=== PATIENT | male | born 2000 | race Two or more races ===

== ENCOUNTER 2025-08-17 11:55 | Emergency (ER) | payer MEDICAID, OTHER ==
[~2025-08-17] VITALS: Ht 172.7 cm; Wt 61.2 kg
[2025-08-17 12:12] VITALS: BP 138/90; TEMP 98.5
[2025-08-17] MEDS ORDERED: CYCL5TAB PO (12:24)
[2025-08-17] MEDS ORDERED: IBUP-1955 PO (12:24)
[2025-08-17] MEDS: BACI/NEOM/POLY B OINT PKT 1 UDPKT PACKET TP ONE (12:25)
[2025-08-17 12:28] VITALS: O2SAT 99
== END 2025-08-17 12:30 | disposition home or self-care (01) ==
LOC: ER 12:01
DX: S16.1XXA Strain of muscle, fascia and tendon at neck level, initial encounter (principal); S50.812A Abrasion of left forearm, initial encounter; F12.90 Cannabis use, unspecified, uncomplicated; V43.52XA Car driver injured in collision with other type car in traffic accident, initial encounter; Y93.89 Activity, other specified; Y92.89 Other specified places as the place of occurrence of the external cause; Y99.8 Other external cause status